=== PATIENT | female | born 1995 | race Caucasian/White ===

== ENCOUNTER 2016-11-10 13:42 | Emergency (ER) | payer OTHER ==
[~2016-11-10] VITALS: Ht 167.6 cm; Wt 63.6 kg
[2016-11-10 14:40] LABS: HEMATOCRIT 39.5 % (36.0-46.0); MCH 29.7 PG (29.0-34.0); MCHC 33.4 G/DL (30.0-36.0); MEAN PLAT.VOLUME 10.7 uM^3 (9.5-12.4); PLATELET COUNT 240 K/uL (156-360); RBC DIS.WIDTH-CV 12.1 % (11.8-14.6); RBC DIS.WIDTH-SD 39.2 % (39-53); RED BLOOD COUNT 4.44 M/uL (3.80-5.20); WHITE BLOOD COUNT 7.8 K/uL (4.1-10.2)
[2016-11-10 14:48] LABS: CHLORIDE 107 mEq/L (99-109); POTASSIUM 4.2 mEq/L (3.7-5.4); SODIUM 140 mEq/L (136-147)
[2016-11-10 14:51] LABS: GLUCOSE 83 mg/dL (70-99)
[2016-11-10 14:52] LABS: ANION GAP 9 MEQ/L (2-14); TOTAL BILIRUBIN 0.5 mg/dL (0.0-1.0)
[2016-11-10 14:54] LABS: ALKALINE PHOSPHATASE 55 IU/L (3-129); GFR ESTIMATE (CALCULATED) > 59 mL/min/
[2016-11-10 14:55] LABS: UREA NITROGEN (BUN) 13 mg/dL (9-23)
[2016-11-10 15:03] LABS: QUANTITATIVE HCG < 4.0 MIU/ML
[2016-11-10] MEDS ORDERED: NORCO 5/3251 TABLET PO (16:53)
[2016-11-10 16:54] LABS: ADD MIUA? YES; BILIRUBIN NEGATIVE; BLOOD LARGE; COLOR AMBER ((YELLOW)); GLUCOSE (STRIP) NEGATIVE; KETONES NEGATIVE; LEUKOCYTES NEGATIVE; NITRITE POSITIVE; PROTEIN (STRIP) 100; SPECIFIC GRAVITY 1.021 (1.000-1.030)
[2016-11-10 17:03] LABS: BACTERIA RARE /HPF; EPITHELIAL CELLS RARE /HPF; MUCUS 2+ /LPF; RED BLOOD CELLS TNTC /HPF (0-5); UCUL ADDED? YES
[2016-11-10] MEDS ORDERED: KEFLEX500 MG PO (17:35)
[2016-11-10 17:48] VITALS: BP 109/70
== END 2016-11-10 17:54 | disposition home or self-care (01) ==
LOC: EME 13:42
DX: N39.0 Urinary tract infection, site not specified (principal); N93.9 Abnormal uterine and vaginal bleeding, unspecified; R42 Dizziness and giddiness
CPT/HCPCS: 76856; 80053; 81003; 84702; 85027; 87077; 87086; 87186; 99281; 99284

== ENCOUNTER 2017-08-25 17:38 | Emergency (ER) | payer OTHER ==
[~2017-08-25] VITALS: Ht 167.6 cm; Wt 71.5 kg
[~2017-08-25 17:38] MED LIST: KEFLEX500 MG PO; NORCO 5/3251 TABLET PO
[2017-08-25 18:12] LABS: BASOPHIL (%) 0.3 % (0-1); EOSINOPHIL (%) 0.9 % (0-5); EOSINOPHIL COUNT 0.1 K/uL (0-0.3); HEMATOCRIT 35.5 % (36.0-46.0); HEMOGLOBIN 12.4 G/DL (11.9-15.5); IMMATURE GRANULOCYTE (%) 0.3 % (0.0-0.7); LYMPHOCYTE (%) 13.5 % (15-42); MCH 31.2 PG (29.0-34.0); MCHC 34.9 G/DL (30.0-36.0); MCV 89.4 FL (83-99); MONOCYTE (%) 7.6 % (3-12); MONOCYTE COUNT 0.6 K/uL (0-0.8); NEUTROPHIL (%) 77.4 % (45-76); NEUTROPHIL COUNT 5.7 K/uL (1.8-6.4); PLATELET COUNT 210 K/uL (156-360); RBC DIS.WIDTH-CV 13.3 % (11.8-14.6); RBC DIS.WIDTH-SD 43.9 % (39-53); RED BLOOD COUNT 3.97 M/uL (3.80-5.20); WHITE BLOOD COUNT 7.4 K/uL (4.1-10.2)
[2017-08-25 18:20] LABS: ALBUMIN 3.7 g/dL (3.2-4.8); CHLORIDE 105 mEq/L (99-109); POTASSIUM 4.1 mEq/L (3.7-5.4)
[2017-08-25 18:21] LABS: SODIUM 137 mEq/L (136-147)
[2017-08-25 18:23] LABS: GLUCOSE 80 mg/dL (70-99); TOTAL PROTEIN 6.6 g/dL (6.4-8.3)
[2017-08-25 18:25] LABS: TOTAL BILIRUBIN 0.3 mg/dL (0.0-1.0)
[2017-08-25 18:26] LABS: ALKALINE PHOSPHATASE 73 IU/L (3-129); CREATININE 0.6 mg/dL (0.6-1.3); GFR ESTIMATE (CALCULATED) > 59 mL/min/
[2017-08-25 18:28] LABS: AST (GOT) 29 IU/L (2-34); UREA NITROGEN (BUN) 8 mg/dL (9-23)
[2017-08-25 18:29] LABS: ALT (GPT) 24 IU/L (3-49)
[2017-08-25 18:30] LABS: LIPASE 49 U/L (1.0-51.0)
[2017-08-25 18:32] LABS: TROP-I INTERPRETATION NEGATIVE; TROPONIN-I < 0.01 ng/mL (0.0-0.30)
[2017-08-25 19:20] LABS: APPEARANCE SL.HAZY ((CLEAR)); BILIRUBIN NEGATIVE; BLOOD NEGATIVE; COLOR YELLOW ((YELLOW)); GLUCOSE (STRIP) NEGATIVE; KETONES NEGATIVE; LEUKOCYTES LARGE; NITRITE NEGATIVE; PROTEIN (STRIP) NEGATIVE; SPECIFIC GRAVITY 1.016 (1.000-1.030); UROBILINOGEN 0.2 MG/DL (0.2-1.0)
[2017-08-25 19:31] LABS: BACTERIA RARE /HPF; EPITHELIAL CELLS 2+ /HPF; MUCUS TRACE /LPF; RED BLOOD CELLS 0-5 /HPF (0-5); UCUL ADDED? YES; WHITE BLOOD CELLS 15-20 /HPF (0-5)
[2017-08-25] MEDS ORDERED: ZANTAC150 MG PO (22:05)
[2017-08-25] MEDS ORDERED: MACROBID100 MG PO (22:05)
[2017-08-25] MEDS ORDERED: ZOFRAN ODT4 MG PO (22:06)
[2017-08-25 22:16] VITALS: BP 108/71
== END 2017-08-25 22:17 | disposition home or self-care (01) ==
LOC: EME 17:38
PROVIDERS: Emergency Medicine
DX: O99.282 Endocrine, nutritional and metabolic diseases complicating pregnancy, second trimester (principal); E86.0 Dehydration; O23.42 Unspecified infection of urinary tract in pregnancy, second trimester; O99.612 Diseases of the digestive system complicating pregnancy, second trimester; K21.9 Gastro-esophageal reflux disease without esophagitis; R42 Dizziness and giddiness; R06.02 Shortness of breath; Z3A.21 21 weeks gestation of pregnancy
CPT/HCPCS: 80053; 81003; 83690; 84484; 85025; 87086; 93005; 99281; 99285; J2405; J7040

== ENCOUNTER 2017-08-26 16:45 | Emergency (ER) | payer OTHER ==
[~2017-08-26] VITALS: Ht 167.6 cm; Wt 72.0 kg
[~2017-08-26 16:45] MED LIST changes: +MACROBID100 MG PO; +ZANTAC150 MG PO; +ZOFRAN ODT4 MG PO
[2017-08-26 17:35] LABS: HEMATOCRIT 32.9 % (36.0-46.0); HEMOGLOBIN 11.6 G/DL (11.9-15.5); MCH 31.8 PG (29.0-34.0); MCHC 35.3 G/DL (30.0-36.0); MCV 90.1 FL (83-99); PLATELET COUNT 188 K/uL (156-360); RBC DIS.WIDTH-CV 13.5 % (11.8-14.6); RBC DIS.WIDTH-SD 44.6 % (39-53); RED BLOOD COUNT 3.65 M/uL (3.80-5.20); WHITE BLOOD COUNT 6.1 K/uL (4.1-10.2)
[2017-08-26 17:43] LABS: ALBUMIN 3.4 g/dL (3.2-4.8); CHLORIDE 104 mEq/L (99-109); POTASSIUM 3.8 mEq/L (3.7-5.4); SODIUM 136 mEq/L (136-147)
[2017-08-26 17:45] LABS: GLUCOSE 78 mg/dL (70-99)
[2017-08-26 17:47] LABS: TOTAL BILIRUBIN 0.3 mg/dL (0.0-1.0)
[2017-08-26 17:49] LABS: ALKALINE PHOSPHATASE 66 IU/L (3-129); CREATININE 0.5 mg/dL (0.6-1.3); GFR ESTIMATE (CALCULATED) > 59 mL/min/
[2017-08-26 17:50] LABS: UREA NITROGEN (BUN) 6 mg/dL (9-23)
[2017-08-26 17:51] LABS: AST (GOT) 35 IU/L (2-34)
[2017-08-26 17:52] LABS: ALT (GPT) 28 IU/L (3-49); LIPASE 45 U/L (1.0-51.0)
[2017-08-26 18:18] LABS: APPEARANCE CLEAR ((CLEAR)); BILIRUBIN NEGATIVE; BLOOD NEGATIVE; COLOR STRAW ((YELLOW)); GLUCOSE (STRIP) NEGATIVE; KETONES NEGATIVE; LEUKOCYTES MODERATE; NITRITE NEGATIVE; PROTEIN (STRIP) NEGATIVE; SPECIFIC GRAVITY 1.004 (1.000-1.030); UROBILINOGEN 0.2 MG/DL (0.2-1.0)
[2017-08-26 18:21] LABS: BACTERIA RARE /HPF; EPITHELIAL CELLS 1+ /HPF; MUCUS NONE SEEN /LPF; RED BLOOD CELLS 0-5 /HPF (0-5); UCUL ADDED? YES; WHITE BLOOD CELLS 15-20 /HPF (0-5)
[2017-08-26 20:25] VITALS: BP 113/58
== END 2017-08-26 20:25 | disposition home or self-care (01) ==
LOC: EME 16:45
PROVIDERS: Physician Assistant
DX: O26.892 Other specified pregnancy related conditions, second trimester (principal); R10.11 Right upper quadrant pain; Z3A.21 21 weeks gestation of pregnancy; Z87.42 Personal history of other diseases of the female genital tract
CPT/HCPCS: 76705; 80053; 81003; 83690; 85027; 87086; 99281; 99283